=== PATIENT | male | born 1955 | race Caucasian/White ===

== ENCOUNTER → 2018-06-12 | Outpatient (REF) ==
[~2018-06-12] MED LIST: ASPIRIN 81M81 MG/TA2 PO; CALCIUM 600MG+D1 TAB PO; FERROUS SULFATE65 MG PO; FOLIC ACID0.4 MG; GLUCOSAMINE 1000 PO; MASON NATURAL1200 MG PO; MULTI VITAMINS1 TAB PO; THE MEDICINE S300 M1 PO; VITAMIN D 1001000 IU PO; VITAMINC1000TA PO
[2018-06-12 17:05] LABS: THYROID STIMULATING HORMONE 2.99 uIU/mL (0.465-4.680)
[2018-06-12 18:03] LABS: PSA-TOTAL 1.01 ng/mL (0-4)
== END ==
LOC: ZLAB.WCH 16:10
PROVIDERS: Family Medicine
DX: Z01.89 Encounter for other specified special examinations (principal)
CPT/HCPCS: G0103

== ENCOUNTER → 2018-06-13 | Outpatient (REF) | LOC: ZLAB.WCH 15:46 | DX: Z01.89 Encounter for other specified special examinations (principal) ==